=== PATIENT | male | born 1950 | race African-American/Black ===

== ENCOUNTER 2017-06-27 11:08 | Emergency (ER) | payer MEDICAID ==
[~2017-06-27] VITALS: Ht 180.3 cm; Wt 82.0 kg
[2017-06-27 11:11] VITALS: BP 128/65
[2017-06-27] MEDS ORDERED: BENA40TA3 PO (11:16)
[2017-06-27] MEDS ORDERED: INDOMETHACIN 50MG CAPSULE PO ONE (12:45)
== END 2017-06-27 14:26 | disposition home or self-care (01) ==
LOC: ER 12:10
DX: M25.572 Pain in left ankle and joints of left foot (principal); M25.521 Pain in right elbow; L08.9 Local infection of the skin and subcutaneous tissue, unspecified; J45.909 Unspecified asthma, uncomplicated; E11.9 Type 2 diabetes mellitus without complications; I10 Essential (primary) hypertension; M10.9 Gout, unspecified; F17.200 Nicotine dependence, unspecified, uncomplicated
CPT/HCPCS: 73080; 99284

== ENCOUNTER 2017-08-03 14:02 | Emergency (ER) | payer MEDICAID ==
[~2017-08-03] VITALS: Ht 175.3 cm; Wt 80.0 kg
[~2017-08-03 14:02] MED LIST: BENA40TA3 PO
[2017-08-03] MEDS ORDERED: SODIUM CHLORIDE 0.9% 1,000 ML IV ONE (14:45)
[2017-08-03 15:36] LABS: BASOPHILS % 0.5 % (0.0-2.0); EOSINOPHILS % 2.9 % (0.0-5.0); HEMATOCRIT. 38.6 % (42.0-52.0); HEMOGLOBIN. 12.9 g/dL (14.0-18.0); LYMPHOCYTES % 40.3 % (20.0-50.0); MEAN CORPUSCULAR HEMOGLOBIN 32.6 pg (28.0-32.0); MEAN CORPUSCULAR VOLUME 97.6 fL (80.0-94.0); MEAN PLATELET VOLUME 9.9 fl (7.4-10.4); MONOCYTES % 8.8 % (2.0-8.0); NEUTROPHILS % 47.5 % (40.0-76.0); PLATELET 81 x1000/uL (130-400); PROTHROMBIN TIME 10.6 sec (9.4-11.6); RED BLOOD CELL COUNT 3.96 mill/uL (4.7-6.1); RED CELL DISTRIBUTION WIDTH 16.1 % (11.6-14.6)
[2017-08-03 15:40] LABS: CHLORIDE 109 mEq/L (98-107)
[2017-08-03 15:43] LABS: AMMONIA 39 uMol/L (<32)
[2017-08-03 15:52] LABS: CREATINE KINASE 127 IU/L (39-308)
[2017-08-03 17:46] VITALS: BP 137/82
== END 2017-08-03 18:48 | disposition home or self-care (01) ==
LOC: ER 14:02
DX: F10.229 Alcohol dependence with intoxication, unspecified (principal); E86.0 Dehydration; R55 Syncope and collapse; E87.2 Acidosis; I10 Essential (primary) hypertension; J45.909 Unspecified asthma, uncomplicated; E11.9 Type 2 diabetes mellitus without complications; Y90.8 Blood alcohol level of 240 mg/100 ml or more; Z79.4 Long term (current) use of insulin
CPT/HCPCS: 36415; 70450; 71045; 80053; 82140; 82550; 83605; 84443; 84484; 85025; 85610; 96360; 96361; 99285; G0482; J7030

== ENCOUNTER 2017-11-24 14:22 | Emergency (ER) | payer MEDICAID ==
[~2017-11-24] VITALS: Ht 175.3 cm; Wt 91.0 kg
[2017-11-24] MEDS ORDERED: HYDROCODONE/ACETAMINOPHEN 10/325MG TABLET PO ONE (17:45)
[2017-11-24 18:29] VITALS: BP 123/63
== END 2017-11-24 18:30 | disposition home or self-care (01) ==
LOC: ER 14:40
DX: S42.294A Other nondisplaced fracture of upper end of right humerus, initial encounter for closed fracture (principal); I11.0 Hypertensive heart disease with heart failure; I50.9 Heart failure, unspecified; J45.909 Unspecified asthma, uncomplicated; W01.0XXA Fall on same level from slipping, tripping and stumbling without subsequent striking against object, initial encounter; Y93.89 Activity, other specified; Y92.015 Private garage of single-family (private) house as the place of occurrence of the external cause
CPT/HCPCS: 29105; 73030; 73060; 99284

== ENCOUNTER 2017-12-02 15:12 | Emergency (ER) | payer MEDICAID ==
[~2017-12-02] VITALS: Ht 180.3 cm; Wt 86.0 kg
[2017-12-02] MEDS ORDERED: ASPI-1159 PO (15:29)
[2017-12-02] MEDS ORDERED: IBUP-2030 PO (15:29)
[2017-12-02] MEDS ORDERED: HYDR-4009 PO (15:29)
[2017-12-02] MEDS ORDERED: GABA-531 PO (15:29)
[2017-12-02] MEDS ORDERED: HYDR-4001 PO (15:29)
[2017-12-02] MEDS ORDERED: ESOM40CA53 PO (15:29)
[2017-12-02] MEDS ORDERED: QUIN10TA28 PO (15:29)
[2017-12-02] MEDS ORDERED: COLC0.6C3 PO (15:29)
[2017-12-02] MEDS ORDERED: METO25TA6 PO (15:29)
[2017-12-02] MEDS ORDERED: IBUP-2321 PO (15:29)
[2017-12-02 18:59] VITALS: BP 122/70
== END 2017-12-02 19:00 | disposition home or self-care (01) ==
LOC: ER 15:12
DX: S42.201A Unspecified fracture of upper end of right humerus, initial encounter for closed fracture (principal); X58.XXXA Exposure to other specified factors, initial encounter; Y93.89 Activity, other specified; Y92.89 Other specified places as the place of occurrence of the external cause; Y99.8 Other external cause status
CPT/HCPCS: 29105; 73060; 99284

== ENCOUNTER 2018-09-01 23:04 | Inpatient (IN) | payer MEDICAID ==
[~2018-09-01] VITALS: Ht 173.5 cm; Wt 88.9 kg
[~2018-09-01 23:04] MED LIST changes: +ASPI-1159 PO; -BENA40TA3 PO; +BENA40TA9 PO; +COLC0.6C3 PO; +ESOM40CA53 PO; +GABA-531 PO; +HYDR-4001 PO; +HYDR-4009 PO; +IBUP-2030 PO; +IBUP-2321 PO; +METO25TA6 PO; +QUIN10TA28 PO
[2018-09-01] MEDS ORDERED: SODIUM CHLORIDE 0.9% 1,000 ML IV ONE (23:36)
[2018-09-01] MEDS ORDERED: NITROGLYCERIN OINT 1GM/INCH UDPKT TD ONE (23:45)
[2018-09-01] MEDS ORDERED: ASPIRIN 81MG TABLET PO ONE (23:45)
[2018-09-01 23:59] LABS: HEMATOCRIT. 35.1 % (42.0-52.0); HEMOGLOBIN. 11.7 g/dL (14.0-18.0); MEAN CORPUSCULAR HEMOGLOBIN 33.3 pg (28.0-32.0); MEAN CORPUSCULAR VOLUME 100.2 fL (80.0-94.0); MEAN PLATELET VOLUME 10.3 fl (7.4-10.4); PLATELET 74 x1000/uL (130-400); RED CELL DISTRIBUTION WIDTH 16.2 % (11.6-14.6)
[2018-09-02] VITALS (63 sets, daily range): BP systolic 99–190; BP diastolic 59–100
[2018-09-02 00:05] LABS: CHLORIDE 113 mEq/L (98-107)
[2018-09-02 00:27] LABS: PLATELET ESTIMATE DECREASED
[2018-09-02] MEDS ORDERED: EPINEPHRINE 0.1MG/ML (1:10,000) 10ML SYR ONE (01:24)
[2018-09-02] MEDS ORDERED: AMIODARONE HCL 50MG/ML 3ML VIAL IV ONE (01:24)
[2018-09-02] MEDS ORDERED: AMIODARONE HCL 900 MG in DEXT 5% WATER 500 ML IV PRN (01:30)
[2018-09-02] MEDS ORDERED: ONDANSETRON HCL 4MG/2ML INJ IV STA (01:44)
[2018-09-02] MEDS ORDERED: SODIUM CHLORIDE 0.9% 1,000 ML IV ONE (01:44)
[2018-09-02] MEDS ORDERED: AMIODARONE HCL 150 MG in DEXT 5% WATER 100 ML IV ONE (01:45)
[2018-09-02] MEDS ORDERED: AMIODARONE HCL 900 MG in DEXT 5% WATER 482 ML IV PRN (01:45)
[2018-09-02] MEDS ORDERED: MIDAZOLAM HCL 50 MG in DEXTROSE 5% WATER 40 ML IV ONE (02:00)
[2018-09-02] MEDS ORDERED: MIDAZOLAM HCL 2 MG/2 ML VIAL ONE (02:01)
[2018-09-02 02:13] LABS: BG BASE EXCESS -13.4 mmol/L (-2.0-2.0); BG CARBOXYHEMOGLOBIN 0.3 % (0.5-1.5); BG DEOXYHEMOGLOBIN 0.6 % (0.0-5.0); BG FRACTION INSPIRED OXYGEN 100; BG HCO3 ACT 12.1 mmol/L (22.0-26.0); BG METHEMOGLOBIN 0.8 % (0.0-1.5); BG OXYGEN SATURATION 99.4 % (92.0-98.5); BG OXYHEMOGLOBIN 98.3 % (94.0-97.0); BG PCO2 27.3 mmHg (35.0-45.0); BG PH 7.264 (7.350-7.450); BG PO2 525.5 mmHg (75.0-100.0); BG SAMPLE SITE LEFT RADIAL; BG TIDAL VOLUME(mL) 500 mL; BG TOTAL HEMOGLOBIN 11.5 g/dL (12.0-18.0); BG VENT MODE VENT - A/C; BG VENT RATE 14 set
[2018-09-02] MEDS ORDERED: ONDANSETRON HCL 4MG/2ML INJ IV PRN (02:15)
[2018-09-02] MEDS ORDERED: IPRATROPIUM/ALBUTEROL 0.5-3(2.5)MG/3ML NEB INH PRN (02:15)
[2018-09-02 02:42] LABS: D-DIMER 4.36 mg/L FEU (<0.50); PARTIAL THROMBOPLASTIN TIME 24.7 sec (23.4-31.0); PROTHROMBIN TIME 10.3 sec (9.6-11.0)
[2018-09-02] MEDS ORDERED: MIDAZOLAM HCL 2 MG/2 ML VIAL IV ONE (03:00)
[2018-09-02 03:21] LABS: HEPATITIS B SURFACE ANTIGEN NEGATIVE
[2018-09-02 03:50] LABS: HEPATITIS A AB IGM NEGATIVE (NEGATIVE)
[2018-09-02] MEDS ORDERED: MVI, ADULT NO.1 10 ML, FOLIC ACID 1 MG, THIAMINE HCL 100 MG in SODIUM CHLORIDE 0.9% 1,0... IV SCH ×4 (04:00)
[2018-09-02] MEDS ORDERED: PANTOPRAZOLE SODIUM 40 MG/VIAL IV NR (04:15)
[2018-09-02 04:55] LABS: CLARITY URINE CLOUDY (CLEAR); COLOR URINE YELLOW (YELLOW); KETONES URINE NEGATIVE (NEGATIVE); LEUKOCYTE ESTERASE URINE 1+ (NEGATIVE); NITRITE URINE NEGATIVE (NEGATIVE); OCCULT BLOOD URINE 2+ (NEGATIVE); PH URINE 5.5 (4.5-8.0); PROTEIN URINE 3+ (NEGATIVE); SPECIFIC GRAVITY URINE 1.011 (1.005-1.030)
[2018-09-02 06:26] LABS: *AMPHETAMINES SCREEN URINE NEGATIVE (NEGATIVE)
[2018-09-02 06:27] LABS: *BARBITURATES SCREEN URINE NEGATIVE (NEGATIVE); *BENZODIAZEPINES SCREEN URINE PRESUMTIVE POSITIVE (NEGATIVE); *COCAINE SCREEN URINE NEGATIVE (NEGATIVE); METHADONE URINE SCREEN NEGATIVE (NEGATIVE); OPIATES URINE SCREEN PRESUMTIVE POSITIVE (NEGATIVE); PHENCYCLIDINE URINE SCREEN NEGATIVE (NEGATIVE)
[2018-09-02 06:28] LABS: CANNABINOID URINE SCREEN NEGATIVE (NEGATIVE)
[2018-09-02] MEDS ORDERED: DEXTROSE 50% WATER 50ML SYRINGE IV PRN ×2 (08:00→12:00)
[2018-09-02] MEDS ORDERED: SODIUM BICARBONATE 8.4% 1 MEQ/ML 50ML SYR IV SCH (08:00)
[2018-09-02] MEDS ORDERED: IPRATROPIUM/ALBUTEROL 0.5-3(2.5)MG/3ML NEB HHN PRN (09:00)
[2018-09-02 09:52] LABS: HEMATOCRIT. 33.4 % (42.0-52.0); MEAN CORPUSCULAR HEMOGLOBIN 32.8 pg (28.0-32.0); MEAN PLATELET VOLUME 10.6 fl (7.4-10.4); PLATELET 63 x1000/uL (130-400); RED BLOOD CELL COUNT 3.34 mill/uL (4.7-6.1); RED CELL DISTRIBUTION WIDTH 15.6 % (11.6-14.6)
[2018-09-02] MEDS ORDERED: POTASSIUM CHLORIDE INJ 40 MEQ in DEXT 5% WATER 500 ML IV SCH (10:00)
[2018-09-02] MEDS ORDERED: MAGNESIUM 2 G PREMIX 50 ML IV NR (10:00)
[2018-09-02 10:15] LABS: PLATELET ESTIMATE DECREASED
[2018-09-02 10:35] LABS: BG BASE EXCESS 1.4 mmol/L (-2.0-2.0); BG CARBOXYHEMOGLOBIN 0.3 % (0.5-1.5); BG DEOXYHEMOGLOBIN 4.1 % (0.0-5.0); BG FRACTION INSPIRED OXYGEN 40; BG HCO3 ACT 23.2 mmol/L (22.0-26.0); BG METHEMOGLOBIN 0.1 % (0.0-1.5); BG OXYGEN SATURATION 95.9 % (92.0-98.5); BG OXYHEMOGLOBIN 95.5 % (94.0-97.0); BG PCO2 28.1 mmHg (35.0-45.0); BG PH 7.535 (7.350-7.450); BG PO2 74.1 mmHg (75.0-100.0); BG SAMPLE SITE LEFT RADIAL; BG TIDAL VOLUME(mL) 500 mL; BG TOTAL HEMOGLOBIN 11.2 g/dL (12.0-18.0); BG VENT MODE VENT - A/C; BG VENT RATE 20 set
[2018-09-02] MEDS: SODIUM CHLORIDE 0.9% 1,000 ML IV SCH (11:27)
[2018-09-02] MEDS: AMIODARONE HCL 900 MG in DEXT 5% WATER 482 ML IV PRN (11:28)
[2018-09-02] MEDS: PROPOFOL 10MG/ML 100ML 100 ML IV PRN ×2 (12:17→20:15)
[2018-09-02] MEDS: BLOOD SUGAR DIAGNOSTIC STRIP TEST SCH ×2 (12:27→17:28)
[2018-09-02] MEDS: IPRATROPIUM BROMIDE (0.02%) 0.5MG/2.5ML NEB HHN SCH ×3 (12:39→20:49)
[2018-09-02] MEDS: INSULIN LISPRO 100 UNITS/ML SUBCUT SCH ×3 (12:42→17:27)
[2018-09-02] MEDS: PIPERACILLIN/TAZ 3.375G PREMIX 50 ML IV SCH ×2 (15:57→21:38)
[2018-09-02] MEDS ORDERED: VANCOMYCIN 1250MG in DEXTROSE 5% WATER 250ML IV NR (16:45)
[2018-09-03] VITALS (89 sets, daily range): BP systolic 96–195; BP diastolic 58–115
[2018-09-03] MEDS: BLOOD SUGAR DIAGNOSTIC STRIP TEST SCH ×4 (00:27→23:31)
[2018-09-03] MEDS: IPRATROPIUM BROMIDE (0.02%) 0.5MG/2.5ML NEB HHN SCH ×6 (00:58→20:41)
[2018-09-03] MEDS: PROPOFOL 10MG/ML 100ML 100 ML IV PRN (03:40)
[2018-09-03] MEDS: SODIUM CHLORIDE 0.9% 1,000 ML IV SCH ×2 (03:40→17:07)
[2018-09-03] MEDS: PIPERACILLIN/TAZ 3.375G PREMIX 50 ML IV SCH ×4 (03:43→23:14)
[2018-09-03] MEDS: VANCOMYCIN 1 G PREMIX 200 ML IV SCH ×2 (04:41→23:14)
[2018-09-03 05:17] LABS: HIV SCREEN 4G Non Reactive (Non Reactive)
[2018-09-03 06:10] LABS: HEMATOCRIT. 33.1 % (42.0-52.0); MEAN CORPUSCULAR HEMOGLOBIN 33.6 pg (28.0-32.0); MEAN CORPUSCULAR VOLUME 101.1 fL (80.0-94.0); MEAN PLATELET VOLUME 10.5 fl (7.4-10.4); PLATELET 73 x1000/uL (130-400); RED BLOOD CELL COUNT 3.28 mill/uL (4.7-6.1); RED CELL DISTRIBUTION WIDTH 15.7 % (11.6-14.6)
[2018-09-03 06:13] LABS: CHLORIDE 114 mEq/L (98-107)
[2018-09-03 06:22] LABS: LDL CHOLESTEROL 26 mg/dL (5-100)
[2018-09-03 06:24] LABS: HDL CHOLESTEROL 18 mg/dL (40-59)
[2018-09-03 07:37] LABS: PLATELET ESTIMATE DECREASED
[2018-09-03] MEDS: INSULIN LISPRO 100 UNITS/ML SUBCUT SCH ×3 (08:20→23:30)
[2018-09-03 08:26] LABS: CREATINE KINASE 1080 IU/L (39-308)
[2018-09-03 08:32] LABS: BG BASE EXCESS -3.2 mmol/L (-2.0-2.0); BG CARBOXYHEMOGLOBIN 0.3 % (0.5-1.5); BG DEOXYHEMOGLOBIN 2.2 % (0.0-5.0); BG FRACTION INSPIRED OXYGEN 40; BG HCO3 ACT 20.3 mmol/L (22.0-26.0); BG METHEMOGLOBIN 0.5 % (0.0-1.5); BG OXYGEN SATURATION 97.8 % (92.0-98.5); BG PH 7.434 (7.350-7.450); BG SAMPLE SITE RIGHT BRACHIAL; BG TIDAL VOLUME(mL) 500 mL; BG TOTAL HEMOGLOBIN 10.6 g/dL (12.0-18.0); BG VENT MODE VENT - A/C; BG VENT RATE 16 set
[2018-09-03] MEDS: PANTOPRAZOLE SODIUM 40 MG/VIAL IV SCH (09:18)
[2018-09-03] MEDS: MULTIVITAMINS,THER W-MINERALS TABLET PO SCH (09:19)
[2018-09-03] MEDS: THIAMINE HCL 100MG TABLET PO SCH (09:19)
[2018-09-03] MEDS: FOLIC ACID 1MG TABLET PO SCH (09:19)
[2018-09-03] MEDS ORDERED: ASPIRIN 81MG TABLET PO SCH (14:00)
[2018-09-03] MEDS: MIDAZOLAM HCL 50 MG in DEXTROSE 5% WATER 40 ML IV PRN ×2 (15:16→23:18)
[2018-09-03] MEDS: FENTANYL CITRATE/PF 500 MCG in SODIUM CHLORIDE 0.9% 40 ML IV PRN (15:22)
[2018-09-03] MEDS: AMIODARONE HCL 900 MG in DEXT 5% WATER 482 ML IV PRN (15:52)
[2018-09-03] MEDS: METOPROLOL TARTRATE 25MG TABLET PO SCH (19:40)
[2018-09-03 20:34] LABS: BG BASE EXCESS -6.2 mmol/L (-2.0-2.0); BG CARBOXYHEMOGLOBIN 0.3 % (0.5-1.5); BG DEOXYHEMOGLOBIN 7.2 % (0.0-5.0); BG FRACTION INSPIRED OXYGEN 100; BG HCO3 ACT 17.2 mmol/L (22.0-26.0); BG METHEMOGLOBIN 0.5 % (0.0-1.5); BG OXYGEN SATURATION 92.7 % (92.0-98.5); BG PCO2 28.3 mmHg (35.0-45.0); BG PH 7.402 (7.350-7.450); BG PO2 65.3 mmHg (75.0-100.0); BG SAMPLE SITE RIGHT RADIAL; BG TIDAL VOLUME(mL) 500 mL; BG TOTAL HEMOGLOBIN 12.5 g/dL (12.0-18.0); BG VENT MODE VENT - A/C; BG VENT RATE 16 set
[2018-09-04] VITALS (98 sets, daily range): BP systolic 80–137; BP diastolic 44–111
[2018-09-04] MEDS: IPRATROPIUM BROMIDE (0.02%) 0.5MG/2.5ML NEB HHN SCH ×6 (00:30→20:06)
[2018-09-04] MEDS: PIPERACILLIN/TAZ 3.375G PREMIX 50 ML IV SCH ×4 (04:04→22:48)
[2018-09-04] MEDS: BLOOD SUGAR DIAGNOSTIC STRIP TEST SCH ×3 (05:25→18:05)
[2018-09-04] MEDS: INSULIN LISPRO 100 UNITS/ML SUBCUT SCH ×3 (05:25→18:52)
[2018-09-04 06:42] LABS: CHLORIDE 111 mEq/L (98-107)
[2018-09-04 06:45] LABS: HEMOGLOBIN. 10.2 g/dL (14.0-18.0); MEAN CORPUSCULAR HEMOGLOBIN 32.8 pg (28.0-32.0); MEAN CORPUSCULAR VOLUME 100.1 fL (80.0-94.0); MEAN PLATELET VOLUME 10.7 fl (7.4-10.4); PLATELET 68 x1000/uL (130-400); RED CELL DISTRIBUTION WIDTH 15.8 % (11.6-14.6)
[2018-09-04] MEDS ORDERED: POTASSIUM CHLORIDE 20MEQ/PACKET PO NR (07:30)
[2018-09-04 07:56] LABS: BG BASE EXCESS -3.9 mmol/L (-2.0-2.0); BG CARBOXYHEMOGLOBIN 0.3 % (0.5-1.5); BG DEOXYHEMOGLOBIN 0.8 % (0.0-5.0); BG FRACTION INSPIRED OXYGEN 100; BG METHEMOGLOBIN 0.5 % (0.0-1.5); BG OXYGEN SATURATION 99.2 % (92.0-98.5); BG OXYHEMOGLOBIN 98.4 % (94.0-97.0); BG PCO2 32.2 mmHg (35.0-45.0); BG PO2 276.6 mmHg (75.0-100.0); BG SAMPLE SITE RIGHT RADIAL; BG TIDAL VOLUME(mL) 500 mL; BG TOTAL HEMOGLOBIN 10.6 g/dL (12.0-18.0); BG VENT MODE VENT - A/C; BG VENT RATE 16 set
[2018-09-04 08:19] LABS: PLATELET ESTIMATE DECREASED
[2018-09-04] MEDS: METOPROLOL TARTRATE 25MG TABLET PO SCH ×2 (09:00→21:00)
[2018-09-04] MEDS: PANTOPRAZOLE SODIUM 40 MG/VIAL IV SCH (09:34)
[2018-09-04] MEDS: MULTIVITAMINS,THER W-MINERALS TABLET PO SCH (09:34)
[2018-09-04] MEDS: FOLIC ACID 1MG TABLET PO SCH (09:34)
[2018-09-04] MEDS: THIAMINE HCL 100MG TABLET PO SCH (09:34)
[2018-09-04] MEDS: FUROSEMIDE 40MG/4ML VIAL IVP SCH (09:37)
[2018-09-04 13:06] LABS: ANTI-NUCLEAR ANTIBODIES DIRECT Negative (Negative)
[2018-09-04] MEDS: VANCOMYCIN 1 G PREMIX 200 ML IV SCH (16:31)
[2018-09-04] MEDS: MIDAZOLAM HCL 50 MG in DEXTROSE 5% WATER 40 ML IV PRN (20:38)
[2018-09-05] VITALS (95 sets, daily range): BP systolic 101–149; BP diastolic 51–89
[2018-09-05] MEDS: IPRATROPIUM BROMIDE (0.02%) 0.5MG/2.5ML NEB HHN SCH ×7 (00:11→23:57)
[2018-09-05] MEDS: BLOOD SUGAR DIAGNOSTIC STRIP TEST SCH ×4 (00:50→18:56)
[2018-09-05] MEDS: INSULIN LISPRO 100 UNITS/ML SUBCUT SCH ×4 (00:50→18:58)
[2018-09-05] MEDS: PIPERACILLIN/TAZ 3.375G PREMIX 50 ML IV SCH ×3 (04:00→17:08)
[2018-09-05 06:11] LABS: CHLORIDE 113 mEq/L (98-107)
[2018-09-05 06:19] LABS: PHOSPHORUS 2.3 mg/dL (2.5-4.9)
[2018-09-05 06:23] LABS: BASOPHILS % 0.7 % (0.0-2.0); HEMOGLOBIN. 10.3 g/dL (14.0-18.0); MEAN CORPUSCULAR HEMOGLOBIN 33.5 pg (28.0-32.0); MEAN CORPUSCULAR VOLUME 100.4 fL (80.0-94.0); MEAN PLATELET VOLUME 10.6 fl (7.4-10.4); NEUTROPHILS % 77.3 % (40.0-76.0); PLATELET 77 x1000/uL (130-400); RED BLOOD CELL COUNT 3.08 mill/uL (4.7-6.1); RED CELL DISTRIBUTION WIDTH 15.9 % (11.6-14.6)
[2018-09-05] MEDS: FENTANYL CITRATE/PF 500 MCG in SODIUM CHLORIDE 0.9% 40 ML IV PRN (07:21)
[2018-09-05] MEDS ORDERED: POTASSIUM PHOS,M-BASIC-D-BASIC 15 MMOL in DEXT 5% WATER 245 ML IV ONE (08:00)
[2018-09-05 08:58] LABS: BG BASE EXCESS -1.4 mmol/L (-2.0-2.0); BG CARBOXYHEMOGLOBIN 0.3 % (0.5-1.5); BG DEOXYHEMOGLOBIN 1.3 % (0.0-5.0); BG FRACTION INSPIRED OXYGEN 55; BG HCO3 ACT 22.8 mmol/L (22.0-26.0); BG METHEMOGLOBIN 0.5 % (0.0-1.5); BG OXYGEN SATURATION 98.7 % (92.0-98.5); BG OXYHEMOGLOBIN 97.9 % (94.0-97.0); BG PCO2 36.5 mmHg (35.0-45.0); BG PH 7.414 (7.350-7.450); BG PO2 155.7 mmHg (75.0-100.0); BG SAMPLE SITE RIGHT RADIAL; BG TIDAL VOLUME(mL) 500 mL; BG TOTAL HEMOGLOBIN 10.6 g/dL (12.0-18.0); BG VENT MODE VENT - A/C; BG VENT RATE 16 set
[2018-09-05] MEDS ORDERED: POTASSIUM PHOS,M-BASIC-D-BASIC 15 MMOL in DEXT 5% WATER 245 ML IV NR (09:00)
[2018-09-05] MEDS: PANTOPRAZOLE SODIUM 40 MG/VIAL IV SCH (09:20)
[2018-09-05] MEDS: FUROSEMIDE 40MG/4ML VIAL IVP SCH (09:20)
[2018-09-05] MEDS: MULTIVITAMINS,THER W-MINERALS TABLET PO SCH (09:21)
[2018-09-05] MEDS: FOLIC ACID 1MG TABLET PO SCH (09:21)
[2018-09-05] MEDS: THIAMINE HCL 100MG TABLET PO SCH (09:21)
[2018-09-05] MEDS: METOPROLOL TARTRATE 25MG TABLET PO SCH ×2 (09:29→21:35)
[2018-09-05] MEDS ORDERED: POTASSIUM CHLORIDE 20MEQ/PACKET NG NR (11:30)
[2018-09-05] MEDS: VANCOMYCIN 1 G PREMIX 200 ML IV SCH (12:04)
[2018-09-05 13:06] LABS: COMPLEMENT C3 82 mg/dL (82-167)
[2018-09-05] MEDS: MIDAZOLAM HCL 50 MG in DEXTROSE 5% WATER 40 ML IV PRN (20:29)
[2018-09-05] MEDS: CEFAZOLIN 1000MG PREMIX 50 ML IV SCH (23:23)
[2018-09-06] VITALS (99 sets, daily range): BP systolic 110–170; BP diastolic 58–102
[2018-09-06] MEDS: BLOOD SUGAR DIAGNOSTIC STRIP TEST SCH ×4 (00:50→17:49)
[2018-09-06] MEDS: INSULIN LISPRO 100 UNITS/ML SUBCUT SCH ×4 (02:00→17:53)
[2018-09-06 06:27] LABS: CHLORIDE 112 mEq/L (98-107)
[2018-09-06 06:31] LABS: PHOSPHORUS 2.8 mg/dL (2.5-4.9)
[2018-09-06] MEDS: CEFAZOLIN 1000MG PREMIX 50 ML IV SCH ×3 (06:35→21:35)
[2018-09-06] MEDS: IPRATROPIUM BROMIDE (0.02%) 0.5MG/2.5ML NEB HHN SCH ×4 (07:53→21:01)
[2018-09-06 08:35] LABS: MEAN CORPUSCULAR HEMOGLOBIN 33.2 pg (28.0-32.0); MEAN CORPUSCULAR VOLUME 101.3 fL (80.0-94.0); MEAN PLATELET VOLUME 10.7 fl (7.4-10.4); PLATELET 74 x1000/uL (130-400); RED BLOOD CELL COUNT 3.95 mill/uL (4.7-6.1); RED CELL DISTRIBUTION WIDTH 16.3 % (11.6-14.6)
[2018-09-06 08:40] LABS: HEMOGLOBIN. 13.1 g/dL (14.0-18.0)
[2018-09-06] MEDS: FOLIC ACID 1MG TABLET PO SCH (09:15)
[2018-09-06] MEDS: THIAMINE HCL 100MG TABLET PO SCH (09:15)
[2018-09-06] MEDS: FUROSEMIDE 40MG/4ML VIAL IVP SCH (09:15)
[2018-09-06] MEDS: PANTOPRAZOLE SODIUM 40 MG/VIAL IV SCH (09:15)
[2018-09-06] MEDS: METOPROLOL TARTRATE 25MG TABLET PO SCH ×2 (09:16→21:36)
[2018-09-06] MEDS: MULTIVITAMINS,THER W-MINERALS TABLET PO SCH (09:16)
[2018-09-06 09:21] LABS: BG BASE EXCESS 1.8 mmol/L (-2.0-2.0); BG CARBOXYHEMOGLOBIN 0.2 % (0.5-1.5); BG DEOXYHEMOGLOBIN 1.1 % (0.0-5.0); BG FRACTION INSPIRED OXYGEN 40; BG METHEMOGLOBIN 0.3 % (0.0-1.5); BG OXYGEN SATURATION 98.9 % (92.0-98.5); BG OXYHEMOGLOBIN 98.4 % (94.0-97.0); BG PH 7.441 (7.350-7.450); BG PO2 152.2 mmHg (75.0-100.0); BG SAMPLE SITE RIGHT RADIAL; BG TIDAL VOLUME(mL) 500 mL; BG VENT MODE VENT - A/C; BG VENT RATE 16 set
[2018-09-06] MEDS ORDERED: POTASSIUM CHLORIDE 20MEQ/PACKET NG NR (10:15)
[2018-09-06] MEDS: MIDAZOLAM HCL 50 MG in DEXTROSE 5% WATER 40 ML IV PRN (10:22)
[2018-09-06 10:28] LABS: PLATELET ESTIMATE DECREASED
[2018-09-06] MEDS: LACTULOSE 20G/30ML UDC PO SCH (14:59)
[2018-09-07] VITALS (70 sets, daily range): BP systolic 133–195; BP diastolic 71–122
[2018-09-07] MEDS: BLOOD SUGAR DIAGNOSTIC STRIP TEST SCH ×4 (00:14→17:28)
[2018-09-07] MEDS: INSULIN LISPRO 100 UNITS/ML SUBCUT SCH ×4 (00:22→17:36)
[2018-09-07] MEDS: IPRATROPIUM BROMIDE (0.02%) 0.5MG/2.5ML NEB HHN SCH ×3 (00:35→07:30)
[2018-09-07 05:33] LABS: HEMATOCRIT. 34.8 % (42.0-52.0); HEMOGLOBIN. 11.7 g/dL (14.0-18.0); MEAN CORPUSCULAR HEMOGLOBIN 33.1 pg (28.0-32.0); MEAN CORPUSCULAR VOLUME 98.9 fL (80.0-94.0); MEAN PLATELET VOLUME 10.4 fl (7.4-10.4); PLATELET 124 x1000/uL (130-400); RED BLOOD CELL COUNT 3.51 mill/uL (4.7-6.1); RED CELL DISTRIBUTION WIDTH 15.2 % (11.6-14.6)
[2018-09-07 05:36] LABS: CHLORIDE 107 mEq/L (98-107)
[2018-09-07 05:55] LABS: PHOSPHORUS 3.4 mg/dL (2.5-4.9)
[2018-09-07] MEDS: CEFAZOLIN 1000MG PREMIX 50 ML IV SCH ×3 (06:36→21:49)
[2018-09-07] MEDS ORDERED: POTASSIUM CHLORIDE 20MEQ/PACKET PO SCH (07:30)
[2018-09-07 07:37] LABS: BG BASE EXCESS 0.8 mmol/L (-2.0-2.0); BG CARBOXYHEMOGLOBIN 0.3 % (0.5-1.5); BG DEOXYHEMOGLOBIN 3.1 % (0.0-5.0); BG HCO3 ACT 24.2 mmol/L (22.0-26.0); BG METHEMOGLOBIN 0.3 % (0.0-1.5); BG OXYGEN SATURATION 96.9 % (92.0-98.5); BG OXYHEMOGLOBIN 96.3 % (94.0-97.0); BG PCO2 34.6 mmHg (35.0-45.0); BG PH 7.463 (7.350-7.450); BG PO2 88.9 mmHg (75.0-100.0); BG SAMPLE SITE RIGHT BRACHIAL; BG TIDAL VOLUME(mL) 500 mL; BG TOTAL HEMOGLOBIN 11.6 g/dL (12.0-18.0); BG VENT MODE VENT - A/C; BG VENT RATE 16 set
[2018-09-07] MEDS: PANTOPRAZOLE SODIUM 40 MG/VIAL IV SCH (08:12)
[2018-09-07] MEDS: LACTULOSE 20G/30ML UDC PO SCH (08:12)
[2018-09-07] MEDS: METOPROLOL TARTRATE 25MG TABLET PO SCH ×2 (08:12→20:14)
[2018-09-07] MEDS: FUROSEMIDE 40MG/4ML VIAL IVP SCH (08:12)
[2018-09-07] MEDS: MULTIVITAMINS,THER W-MINERALS TABLET PO SCH (08:13)
[2018-09-07] MEDS: THIAMINE HCL 100MG TABLET PO SCH (08:13)
[2018-09-07] MEDS: AMLODIPINE 5MG TABLET PO SCH (08:13)
[2018-09-07] MEDS: FOLIC ACID 1MG TABLET PO SCH (08:13)
[2018-09-07 09:01] LABS: PLATELET ESTIMATE NORMAL
[2018-09-07] MEDS: IPRATROPIUM/ALBUTEROL 0.5-3(2.5)MG/3ML NEB HHN SCH ×3 (11:13→20:13)
[2018-09-07] MEDS: ACETYLCYSTEINE 100MG/ML 10% VIAL 4ML INH SCH (15:14)
[2018-09-08] VITALS (47 sets, daily range): BP systolic 91–165; BP diastolic 55–88
[2018-09-08] MEDS: BLOOD SUGAR DIAGNOSTIC STRIP TEST SCH ×5 (00:06→21:00)
[2018-09-08] MEDS: INSULIN LISPRO 100 UNITS/ML SUBCUT SCH ×5 (00:07→23:12)
[2018-09-08] MEDS: IPRATROPIUM/ALBUTEROL 0.5-3(2.5)MG/3ML NEB HHN SCH ×6 (00:31→20:12)
[2018-09-08] MEDS: ACETYLCYSTEINE 100MG/ML 10% VIAL 4ML INH SCH ×3 (00:31→15:41)
[2018-09-08] MEDS: CEFAZOLIN 1000MG PREMIX 50 ML IV SCH ×3 (05:40→22:40)
[2018-09-08 05:56] LABS: HEMATOCRIT. 37.6 % (42.0-52.0); HEMOGLOBIN. 12.6 g/dL (14.0-18.0); MEAN CORPUSCULAR HEMOGLOBIN 33.2 pg (28.0-32.0); MEAN CORPUSCULAR VOLUME 98.8 fL (80.0-94.0); MEAN PLATELET VOLUME 9.8 fl (7.4-10.4); PLATELET 168 x1000/uL (130-400); RED BLOOD CELL COUNT 3.81 mill/uL (4.7-6.1); RED CELL DISTRIBUTION WIDTH 15.8 % (11.6-14.6)
[2018-09-08 05:59] LABS: CHLORIDE 106 mEq/L (98-107)
[2018-09-08 06:15] LABS: PHOSPHORUS 3.5 mg/dL (2.5-4.9)
[2018-09-08 07:14] LABS: BG CARBOXYHEMOGLOBIN 0.7 % (0.5-1.5); BG DEOXYHEMOGLOBIN 1.7 % (0.0-5.0); BG HCO3 ACT 29.3 mmol/L (22.0-26.0); BG METHEMOGLOBIN 0.2 % (0.0-1.5); BG OXYGEN SATURATION 98.3 % (92.0-98.5); BG OXYHEMOGLOBIN 97.4 % (94.0-97.0); BG PCO2 42.1 mmHg (35.0-45.0); BG PH 7.461 (7.350-7.450); BG PO2 112.9 mmHg (75.0-100.0); BG SAMPLE SITE RIGHT RADIAL; BG TIDAL VOLUME(mL) 500 mL; BG TOTAL HEMOGLOBIN 13.3 g/dL (12.0-18.0); BG VENT MODE VENT - A/C; BG VENT RATE 14 set
[2018-09-08] MEDS: LACTULOSE 20G/30ML UDC PO SCH (09:21)
[2018-09-08] MEDS: THIAMINE HCL 100MG TABLET PO SCH (09:21)
[2018-09-08] MEDS: MULTIVITAMINS,THER W-MINERALS TABLET PO SCH (09:21)
[2018-09-08] MEDS: FOLIC ACID 1MG TABLET PO SCH (09:21)
[2018-09-08] MEDS: AMLODIPINE 5MG TABLET PO SCH ×2 (09:22→18:17)
[2018-09-08] MEDS: FUROSEMIDE 40MG/4ML VIAL IVP SCH (09:22)
[2018-09-08] MEDS: PANTOPRAZOLE SODIUM 40 MG/VIAL IV SCH (09:22)
[2018-09-08] MEDS: METOPROLOL TARTRATE 25MG TABLET PO SCH (09:23)
[2018-09-08] MEDS ORDERED: CLONIDINE 0.1MG TABLET PO PRN (10:30)
[2018-09-08] MEDS ORDERED: ACETAMINOPHEN 650MG SUPP PR PRN (10:45)
[2018-09-08] MEDS: LOSARTAN POTASSIUM 25 MG TABLET PO SCH (11:00)
[2018-09-08] MEDS: ASPIRIN 81MG EC TABLET PO SCH (12:16)
[2018-09-08 12:25] LABS: PLATELET ESTIMATE NORMAL
[2018-09-08] MEDS ORDERED: INSULIN LISPRO 100 UNITS/ML SUBCUT SCH (18:15)
[2018-09-08] MEDS ORDERED: INSULIN GLARGINE UD 100 UNITS/ML SYR SUBCUT SCH (22:00)
[2018-09-08] MEDS: ATORVASTATIN CALCIUM 20MG TABLET PO SCH (22:30)
[2018-09-08] MEDS: METOPROLOL TARTRATE 50MG TABLET PO SCH (22:30)
[2018-09-09] VITALS (60 sets, daily range): BP systolic 82–126; BP diastolic 40–72
[2018-09-09] MEDS: ACETYLCYSTEINE 100MG/ML 10% VIAL 4ML INH SCH ×3 (00:16→16:00)
[2018-09-09] MEDS: IPRATROPIUM/ALBUTEROL 0.5-3(2.5)MG/3ML NEB HHN SCH ×6 (00:16→20:24)
[2018-09-09] MEDS: CEFAZOLIN 1000MG PREMIX 50 ML IV SCH ×3 (05:39→21:20)
[2018-09-09 05:53] LABS: BASOPHILS % 0.4 % (0.0-2.0); EOSINOPHILS % 0.4 % (0.0-5.0); HEMATOCRIT. 35.6 % (42.0-52.0); HEMOGLOBIN. 11.7 g/dL (14.0-18.0); LYMPHOCYTES % 11.2 % (20.0-50.0); MEAN CORPUSCULAR HEMOGLOBIN 32.7 pg (28.0-32.0); MEAN CORPUSCULAR VOLUME 99.3 fL (80.0-94.0); MEAN PLATELET VOLUME 10.1 fl (7.4-10.4); MONOCYTES % 13.3 % (2.0-8.0); NEUTROPHILS % 74.7 % (40.0-76.0); PLATELET 229 x1000/uL (130-400); RED BLOOD CELL COUNT 3.59 mill/uL (4.7-6.1); RED CELL DISTRIBUTION WIDTH 15.2 % (11.6-14.6)
[2018-09-09] MEDS: BLOOD SUGAR DIAGNOSTIC STRIP TEST SCH ×10 (08:20→23:12)
[2018-09-09] MEDS ORDERED: INSULIN LISPRO 100 UNITS/ML SUBCUT NR (08:51)
[2018-09-09] MEDS: AMLODIPINE 5MG TABLET PO SCH ×2 (09:00→17:00)
[2018-09-09] MEDS: THIAMINE HCL 100MG TABLET PO SCH (09:01)
[2018-09-09] MEDS: MULTIVITAMINS,THER W-MINERALS TABLET PO SCH (09:01)
[2018-09-09] MEDS: METOPROLOL TARTRATE 50MG TABLET PO SCH ×2 (09:01→21:00)
[2018-09-09] MEDS: ASPIRIN 81MG EC TABLET PO SCH (09:01)
[2018-09-09] MEDS: LOSARTAN POTASSIUM 25 MG TABLET PO SCH (09:01)
[2018-09-09] MEDS: FOLIC ACID 1MG TABLET PO SCH (09:01)
[2018-09-09] MEDS: LACTULOSE 20G/30ML UDC PO SCH (09:02)
[2018-09-09] MEDS: PANTOPRAZOLE SODIUM 40 MG/VIAL IV SCH (09:02)
[2018-09-09] MEDS: INSULIN LISPRO 100 UNITS/ML SUBCUT SCH (09:04)
[2018-09-09] MEDS ORDERED: INSULIN GLARGINE UD 100 UNITS/ML SYR SUBCUT SCH ×2 (10:00)
[2018-09-09] MEDS ORDERED: DEXTROSE 50% WATER 50ML SYRINGE IV PRN ×4 (11:15→12:30)
[2018-09-09] MEDS ORDERED: INSULIN REGULAR (DRIP) 100 UNITS in SODIUM CHLORIDE 0.9% 99 ML IV PRN (12:00)
[2018-09-09] MEDS ORDERED: BLOOD SUGAR DIAGNOSTIC STRIP TEST SCH (12:00)
[2018-09-09] MEDS ORDERED: INSULIN REGULAR (DRIP) 100 UNITS in SODIUM CHLORIDE 0.9% 99 ML IV SCH (13:15)
[2018-09-09 17:08] LABS: CREATINE KINASE 208 IU/L (39-308)
[2018-09-09] MEDS: POLYVINYL ALCOHOL OPHTH DROPS 15ML BOTHEYE SCH (17:41)
[2018-09-09] MEDS: SODIUM CHLORIDE 0.45% 1,000 ML IV SCH (17:42)
[2018-09-09] MEDS: ATORVASTATIN CALCIUM 20MG TABLET PO SCH (21:19)
[2018-09-10] VITALS (89 sets, daily range): BP systolic 89–132; BP diastolic 49–72
[2018-09-10] MEDS: POLYVINYL ALCOHOL OPHTH DROPS 15ML BOTHEYE SCH ×4 (00:05→17:21)
[2018-09-10] MEDS: ACETYLCYSTEINE 100MG/ML 10% VIAL 4ML INH SCH ×2 (00:12→07:23)
[2018-09-10] MEDS: IPRATROPIUM/ALBUTEROL 0.5-3(2.5)MG/3ML NEB HHN SCH ×6 (00:12→20:17)
[2018-09-10] MEDS: BLOOD SUGAR DIAGNOSTIC STRIP TEST SCH ×15 (00:30→20:30)
[2018-09-10 05:24] LABS: BASOPHILS % 0.4 % (0.0-2.0); HEMOGLOBIN. 11.2 g/dL (14.0-18.0); LYMPHOCYTES % 16.9 % (20.0-50.0); MEAN CORPUSCULAR HEMOGLOBIN 32.7 pg (28.0-32.0); MEAN CORPUSCULAR VOLUME 99.2 fL (80.0-94.0); MEAN PLATELET VOLUME 10.1 fl (7.4-10.4); MONOCYTES % 8.2 % (2.0-8.0); NEUTROPHILS % 72.5 % (40.0-76.0); PLATELET 278 x1000/uL (130-400); RED BLOOD CELL COUNT 3.42 mill/uL (4.7-6.1); RED CELL DISTRIBUTION WIDTH 15.4 % (11.6-14.6)
[2018-09-10] MEDS: CEFAZOLIN 1000MG PREMIX 50 ML IV SCH ×2 (06:01→14:37)
[2018-09-10 07:52] LABS: BG BASE EXCESS 4.3 mmol/L (-2.0-2.0); BG CARBOXYHEMOGLOBIN 0.3 % (0.5-1.5); BG DEOXYHEMOGLOBIN 2.7 % (0.0-5.0); BG HCO3 ACT 28.6 mmol/L (22.0-26.0); BG METHEMOGLOBIN 0.3 % (0.0-1.5); BG OXYGEN SATURATION 97.3 % (92.0-98.5); BG OXYHEMOGLOBIN 96.7 % (94.0-97.0); BG PCO2 41.7 mmHg (35.0-45.0); BG PH 7.454 (7.350-7.450); BG PO2 94.8 mmHg (75.0-100.0); BG SAMPLE SITE RIGHT BRACHIAL; BG TIDAL VOLUME(mL) 500 mL; BG TOTAL HEMOGLOBIN 11.2 g/dL (12.0-18.0); BG VENT MODE VENT - A/C; BG VENT RATE 14 set
[2018-09-10] MEDS: PANTOPRAZOLE SODIUM 40 MG/VIAL IV SCH (10:30)
[2018-09-10] MEDS: METOPROLOL TARTRATE 50MG TABLET PO SCH ×2 (10:31→20:49)
[2018-09-10] MEDS: MULTIVITAMINS,THER W-MINERALS TABLET PO SCH (10:32)
[2018-09-10] MEDS: SODIUM CHLORIDE 0.45% 1,000 ML IV SCH (10:32)
[2018-09-10] MEDS: FOLIC ACID 1MG TABLET PO SCH (10:32)
[2018-09-10] MEDS: AMLODIPINE 5MG TABLET PO SCH ×2 (10:32→17:21)
[2018-09-10] MEDS: THIAMINE HCL 100MG TABLET PO SCH (10:32)
[2018-09-10] MEDS: LACTULOSE 20G/30ML UDC PO SCH (10:33)
[2018-09-10] MEDS ORDERED: DEXTROSE 50% WATER 50ML SYRINGE IV PRN (12:15)
[2018-09-10] MEDS ORDERED: FUROSEMIDE 40MG/4ML VIAL IVP NR (13:00)
[2018-09-10] MEDS: INSULIN LISPRO 100 UNITS/ML SUBCUT SCH ×3 (14:38→20:46)
[2018-09-10] MEDS ORDERED: LIDOCAINE HCL/PF 1% 2ML VIAL ONE (16:42)
[2018-09-10] MEDS: ATORVASTATIN CALCIUM 20MG TABLET PO SCH (20:50)
[2018-09-10] MEDS: CEFAZOLIN 500MG in DEXTROSE 5% WATER 50ML IV SCH (21:36)
[2018-09-10] MEDS ORDERED: INSULIN GLARGINE UD 100 UNITS/ML SYR SUBCUT SCH (22:00)
[2018-09-10] MEDS: INSULIN GLARGINE UD 100 UNITS/ML SYR SUBCUT SCH (22:18)
[2018-09-11] VITALS (76 sets, daily range): BP systolic 101–132; BP diastolic 54–76
[2018-09-11] MEDS: ACETYLCYSTEINE 100MG/ML 10% VIAL 4ML INH SCH ×2 (00:17→16:00)
[2018-09-11] MEDS: IPRATROPIUM/ALBUTEROL 0.5-3(2.5)MG/3ML NEB HHN SCH ×6 (00:17→20:18)
[2018-09-11] MEDS: SODIUM CHLORIDE 0.45% 1,000 ML IV SCH ×2 (00:17→15:47)
[2018-09-11] MEDS: INSULIN LISPRO 100 UNITS/ML SUBCUT SCH ×6 (00:24→17:14)
[2018-09-11] MEDS: BLOOD SUGAR DIAGNOSTIC STRIP TEST SCH ×6 (00:25→20:00)
[2018-09-11] MEDS: POLYVINYL ALCOHOL OPHTH DROPS 15ML BOTHEYE SCH ×4 (00:26→17:13)
[2018-09-11 05:44] LABS: BASOPHILS % 0.7 % (0.0-2.0); EOSINOPHILS % 3.2 % (0.0-5.0); HEMATOCRIT. 34.7 % (42.0-52.0); HEMOGLOBIN. 11.2 g/dL (14.0-18.0); LYMPHOCYTES % 16.3 % (20.0-50.0); MEAN CORPUSCULAR HEMOGLOBIN 32.1 pg (28.0-32.0); MEAN CORPUSCULAR VOLUME 99.7 fL (80.0-94.0); MONOCYTES % 7.3 % (2.0-8.0); NEUTROPHILS % 72.5 % (40.0-76.0); RED BLOOD CELL COUNT 3.48 mill/uL (4.7-6.1); RED CELL DISTRIBUTION WIDTH 15.3 % (11.6-14.6)
[2018-09-11 08:03] LABS: PLATELET 304 x1000/uL (130-400)
[2018-09-11] MEDS: PANTOPRAZOLE SODIUM 40 MG/VIAL IV SCH (09:32)
[2018-09-11] MEDS: MULTIVITAMINS,THER W-MINERALS TABLET PO SCH (09:33)
[2018-09-11] MEDS: FOLIC ACID 1MG TABLET PO SCH (09:33)
[2018-09-11] MEDS: CEFAZOLIN 500MG in DEXTROSE 5% WATER 50ML IV SCH (09:33)
[2018-09-11] MEDS: LACTULOSE 20G/30ML UDC PO SCH (09:33)
[2018-09-11] MEDS: THIAMINE HCL 100MG TABLET PO SCH (09:33)
[2018-09-11] MEDS: METOPROLOL TARTRATE 50MG TABLET PO SCH ×2 (09:37→21:55)
[2018-09-11] MEDS: AMLODIPINE 5MG TABLET PO SCH ×2 (09:37→17:12)
[2018-09-11] MEDS: INSULIN GLARGINE UD 100 UNITS/ML SYR SUBCUT SCH (11:22)
[2018-09-11] MEDS: METRONIDAZOLE 500 MG PREMIX 100 ML IV SCH ×2 (15:47→21:44)
[2018-09-11] MEDS: CEFAZOLIN 1000MG PREMIX 50 ML IV SCH (17:12)
[2018-09-11] MEDS: ATORVASTATIN CALCIUM 20MG TABLET PO SCH (21:53)
[2018-09-11] MEDS ORDERED: INSULIN GLARGINE UD 100 UNITS/ML SYR SUBCUT SCH (22:00)
[2018-09-12] VITALS (18 sets, daily range): BP systolic 98–152; BP diastolic 53–79
[2018-09-12] MEDS: IPRATROPIUM/ALBUTEROL 0.5-3(2.5)MG/3ML NEB HHN SCH ×5 (00:01→20:24)
[2018-09-12] MEDS: ACETYLCYSTEINE 100MG/ML 10% VIAL 4ML INH SCH ×2 (00:01→08:19)
[2018-09-12] MEDS: BLOOD SUGAR DIAGNOSTIC STRIP TEST SCH ×6 (00:49→20:00)
[2018-09-12] MEDS: INSULIN LISPRO 100 UNITS/ML SUBCUT SCH ×6 (00:57→20:59)
[2018-09-12] MEDS: POLYVINYL ALCOHOL OPHTH DROPS 15ML BOTHEYE SCH ×4 (00:59→18:43)
[2018-09-12] MEDS: CEFAZOLIN 1000MG PREMIX 50 ML IV SCH ×2 (02:00→09:25)
[2018-09-12] MEDS: METRONIDAZOLE 500 MG PREMIX 100 ML IV SCH (05:07)
[2018-09-12] MEDS: SODIUM CHLORIDE 0.45% 1,000 ML IV SCH (06:46)
[2018-09-12 08:22] LABS: BG BASE EXCESS 5.7 mmol/L (-2.0-2.0); BG CARBOXYHEMOGLOBIN 0.1 % (0.5-1.5); BG DEOXYHEMOGLOBIN 3.4 % (0.0-5.0); BG HCO3 ACT 29.3 mmol/L (22.0-26.0); BG METHEMOGLOBIN 0.3 % (0.0-1.5); BG OXYGEN SATURATION 96.6 % (92.0-98.5); BG OXYHEMOGLOBIN 96.2 % (94.0-97.0); BG PCO2 39.1 mmHg (35.0-45.0); BG PH 7.493 (7.350-7.450); BG PO2 83.3 mmHg (75.0-100.0); BG SAMPLE SITE RIGHT RADIAL; BG TIDAL VOLUME(mL) 500 mL; BG TOTAL HEMOGLOBIN 11.2 g/dL (12.0-18.0); BG VENT MODE VENT - A/C; BG VENT RATE 14 set
[2018-09-12] MEDS: LACTULOSE 20G/30ML UDC PO SCH (09:17)
[2018-09-12] MEDS: PANTOPRAZOLE SODIUM 40 MG/VIAL IV SCH (09:17)
[2018-09-12] MEDS: FOLIC ACID 1MG TABLET PO SCH (09:18)
[2018-09-12] MEDS: AMLODIPINE 5MG TABLET PO SCH ×2 (09:19→18:43)
[2018-09-12] MEDS: THIAMINE HCL 100MG TABLET PO SCH (09:19)
[2018-09-12] MEDS: MULTIVITAMINS,THER W-MINERALS TABLET PO SCH (09:19)
[2018-09-12] MEDS: METOPROLOL TARTRATE 50MG TABLET PO SCH ×2 (09:19→20:49)
[2018-09-12 11:07] LABS: BASOPHILS % 0.8 % (0.0-2.0); EOSINOPHILS % 2.8 % (0.0-5.0); HEMATOCRIT. 31.9 % (42.0-52.0); HEMOGLOBIN. 10.4 g/dL (14.0-18.0); LYMPHOCYTES % 17.8 % (20.0-50.0); MEAN CORPUSCULAR HEMOGLOBIN 32.2 pg (28.0-32.0); MEAN CORPUSCULAR VOLUME 98.7 fL (80.0-94.0); NEUTROPHILS % 69.6 % (40.0-76.0); RED BLOOD CELL COUNT 3.23 mill/uL (4.7-6.1); RED CELL DISTRIBUTION WIDTH 15.6 % (11.6-14.6)
[2018-09-12 11:22] LABS: CHLORIDE 112 mEq/L (98-107)
[2018-09-12] MEDS: ATORVASTATIN CALCIUM 20MG TABLET PO SCH (20:49)
[2018-09-12] MEDS: INSULIN GLARGINE UD 100 UNITS/ML SYR SUBCUT SCH (22:29)
[2018-09-13] VITALS (13 sets, daily range): BP systolic 96–150; BP diastolic 50–73
[2018-09-13] MEDS: ACETYLCYSTEINE 100MG/ML 10% VIAL 4ML INH SCH
[2018-09-13] MEDS: IPRATROPIUM/ALBUTEROL 0.5-3(2.5)MG/3ML NEB HHN SCH ×6 (00:05→20:32)
[2018-09-13] MEDS: POLYVINYL ALCOHOL OPHTH DROPS 15ML BOTHEYE SCH ×5 (00:38→23:06)
[2018-09-13] MEDS: INSULIN LISPRO 100 UNITS/ML SUBCUT SCH ×7 (00:40→23:08)
[2018-09-13] MEDS: BLOOD SUGAR DIAGNOSTIC STRIP TEST SCH ×7 (04:00→23:06)
[2018-09-13 06:49] LABS: CHLORIDE 113 mEq/L (98-107)
[2018-09-13 06:50] LABS: BASOPHILS % 0.7 % (0.0-2.0); EOSINOPHILS % 2.9 % (0.0-5.0); HEMATOCRIT. 33.9 % (42.0-52.0); HEMOGLOBIN. 11.1 g/dL (14.0-18.0); LYMPHOCYTES % 15.4 % (20.0-50.0); MEAN CORPUSCULAR HEMOGLOBIN 32.7 pg (28.0-32.0); MEAN CORPUSCULAR VOLUME 99.5 fL (80.0-94.0); MEAN PLATELET VOLUME 10.4 fl (7.4-10.4); MONOCYTES % 8.1 % (2.0-8.0); NEUTROPHILS % 72.9 % (40.0-76.0); PLATELET 278 x1000/uL (130-400); RED BLOOD CELL COUNT 3.41 mill/uL (4.7-6.1); RED CELL DISTRIBUTION WIDTH 15.1 % (11.6-14.6)
[2018-09-13 08:19] LABS: BG BASE EXCESS 6.1 mmol/L (-2.0-2.0); BG CARBOXYHEMOGLOBIN 0.2 % (0.5-1.5); BG DEOXYHEMOGLOBIN 1.4 % (0.0-5.0); BG HCO3 ACT 30.7 mmol/L (22.0-26.0); BG METHEMOGLOBIN 0.3 % (0.0-1.5); BG OXYGEN SATURATION 98.6 % (92.0-98.5); BG OXYHEMOGLOBIN 98.1 % (94.0-97.0); BG PCO2 44.5 mmHg (35.0-45.0); BG PH 7.457 (7.350-7.450); BG PO2 130.8 mmHg (75.0-100.0); BG SAMPLE SITE RIGHT RADIAL; BG TIDAL VOLUME(mL) 500 mL; BG TOTAL HEMOGLOBIN 11.1 g/dL (12.0-18.0); BG VENT MODE VENT - A/C; BG VENT RATE 14 set
[2018-09-13] MEDS: MULTIVITAMINS,THER W-MINERALS TABLET PO SCH (08:54)
[2018-09-13] MEDS: PANTOPRAZOLE SODIUM 40 MG/VIAL IV SCH (08:54)
[2018-09-13] MEDS: FOLIC ACID 1MG TABLET PO SCH (08:54)
[2018-09-13] MEDS: METOPROLOL TARTRATE 50MG TABLET PO SCH ×2 (08:55→20:19)
[2018-09-13] MEDS: THIAMINE HCL 100MG TABLET PO SCH (08:55)
[2018-09-13] MEDS: AMLODIPINE 5MG TABLET PO SCH ×2 (08:55→17:07)
[2018-09-13] MEDS: LACTULOSE 20G/30ML UDC PO SCH (09:09)
[2018-09-13] MEDS: INSULIN GLARGINE UD 100 UNITS/ML SYR SUBCUT SCH ×2 (10:14→22:24)
[2018-09-13] MEDS: ACETAMINOPHEN 650MG/20.3ML UDC PO PRN (12:45)
[2018-09-13] MEDS: ATORVASTATIN CALCIUM 20MG TABLET PO SCH (20:19)
[2018-09-14] VITALS (19 sets, daily range): BP systolic 106–162; BP diastolic 58–86
[2018-09-14] MEDS: IPRATROPIUM/ALBUTEROL 0.5-3(2.5)MG/3ML NEB HHN SCH ×6 (00:20→21:35)
[2018-09-14] MEDS: INSULIN LISPRO 100 UNITS/ML SUBCUT SCH ×6 (04:00→21:07)
[2018-09-14] MEDS: BLOOD SUGAR DIAGNOSTIC STRIP TEST SCH ×6 (04:00→23:44)
[2018-09-14] MEDS: POLYVINYL ALCOHOL OPHTH DROPS 15ML BOTHEYE SCH ×4 (04:52→23:44)
[2018-09-14 06:43] LABS: BASOPHILS % 0.7 % (0.0-2.0); EOSINOPHILS % 3.6 % (0.0-5.0); HEMATOCRIT. 32.5 % (42.0-52.0); HEMOGLOBIN. 10.7 g/dL (14.0-18.0); MEAN CORPUSCULAR HEMOGLOBIN 32.7 pg (28.0-32.0); MEAN CORPUSCULAR VOLUME 99.2 fL (80.0-94.0); MONOCYTES % 9.2 % (2.0-8.0); NEUTROPHILS % 63.5 % (40.0-76.0); PLATELET 336 x1000/uL (130-400); RED BLOOD CELL COUNT 3.28 mill/uL (4.7-6.1); RED CELL DISTRIBUTION WIDTH 15.2 % (11.6-14.6)
[2018-09-14 07:07] LABS: CHLORIDE 114 mEq/L (98-107)
[2018-09-14] MEDS: THIAMINE HCL 100MG TABLET PO SCH (09:00)
[2018-09-14] MEDS: METOPROLOL TARTRATE 50MG TABLET PO SCH ×2 (09:00→20:19)
[2018-09-14] MEDS: MULTIVITAMINS,THER W-MINERALS TABLET PO SCH (09:00)
[2018-09-14] MEDS: LACTULOSE 20G/30ML UDC PO SCH (09:00)
[2018-09-14] MEDS: AMLODIPINE 5MG TABLET PO SCH ×2 (09:00→17:00)
[2018-09-14] MEDS: FOLIC ACID 1MG TABLET PO SCH (09:00)
[2018-09-14] MEDS: PANTOPRAZOLE SODIUM 40 MG/VIAL IV SCH (09:16)
[2018-09-14] MEDS: INSULIN GLARGINE UD 100 UNITS/ML SYR SUBCUT SCH ×2 (10:00→21:14)
[2018-09-14 10:37] LABS: INR 1.1; PROTHROMBIN TIME 11.3 sec (9.6-11.0)
[2018-09-14 11:04] LABS: BG BASE EXCESS 5.1 mmol/L (-2.0-2.0); BG CARBOXYHEMOGLOBIN 0.1 % (0.5-1.5); BG DEOXYHEMOGLOBIN 1.5 % (0.0-5.0); BG FRACTION INSPIRED OXYGEN 40; BG HCO3 ACT 29.4 mmol/L (22.0-26.0); BG METHEMOGLOBIN 0.2 % (0.0-1.5); BG OXYGEN SATURATION 98.5 % (92.0-98.5); BG OXYHEMOGLOBIN 98.2 % (94.0-97.0); BG PCO2 42.2 mmHg (35.0-45.0); BG PH 7.461 (7.350-7.450); BG PO2 134.3 mmHg (75.0-100.0); BG SAMPLE SITE RIGHT RADIAL; BG TIDAL VOLUME(mL) 500 mL; BG TOTAL HEMOGLOBIN 11.1 g/dL (12.0-18.0); BG VENT MODE VENT - A/C; BG VENT RATE 14 set
[2018-09-14] MEDS: DEXT 5%/0.45% NACL 1000ML 1,000 ML IV SCH (12:08)
[2018-09-14] MEDS: METRONIDAZOLE 500 MG PREMIX 100 ML IV SCH ×3 (12:17→20:51)
[2018-09-14] MEDS: CEFTRIAXONE 1 G PREMIX 50 ML IV SCH (13:18)
[2018-09-14] MEDS ORDERED: FENTANYL CITRATE/PF 50MCG/ML 2ML VIAL ONE (13:58)
[2018-09-14] MEDS ORDERED: MIDAZOLAM HCL 5 MG/5 ML VIAL ONE ×2 (13:58→18:40)
[2018-09-14] MEDS ORDERED: MIDAZOLAM HCL 5 MG/5 ML VIAL IV PRN (15:16)
[2018-09-14] MEDS ORDERED: BACTERIOSTATIC SODIUM CHLORIDE 0.9% 30ML VIAL IJ ONE (15:59)
[2018-09-14] MEDS ORDERED: DEXTROSE 5% WATER 1,000 ML IV SCH (17:00)
[2018-09-14] MEDS ORDERED: ROCURONIUM BROMIDE 10MG/ML VIAL 5ML IV ONE (18:40)
[2018-09-14] MEDS: ATORVASTATIN CALCIUM 20MG TABLET PO SCH (20:51)
[2018-09-14] MEDS: METOCLOPRAMIDE HCL 10MG/2ML VIAL IV SCH (23:43)
[2018-09-14] MEDS: ACETAMINOPHEN 650MG/20.3ML UDC PO PRN (23:44)
[2018-09-15] VITALS (18 sets, daily range): BP systolic 101–128; BP diastolic 50–68
[2018-09-15] MEDS: INSULIN LISPRO 100 UNITS/ML SUBCUT SCH ×6 (00:30→21:55)
[2018-09-15] MEDS: IPRATROPIUM/ALBUTEROL 0.5-3(2.5)MG/3ML NEB HHN SCH ×6 (00:31→20:15)
[2018-09-15] MEDS: BLOOD SUGAR DIAGNOSTIC STRIP TEST SCH ×5 (04:00→20:00)
[2018-09-15] MEDS: DEXT 5%/0.45% NACL 1000ML 1,000 ML IV SCH ×2 (04:43→21:53)
[2018-09-15] MEDS: METRONIDAZOLE 500 MG PREMIX 100 ML IV SCH ×3 (04:55→21:28)
[2018-09-15] MEDS: METOCLOPRAMIDE HCL 10MG/2ML VIAL IV SCH ×3 (06:03→17:31)
[2018-09-15] MEDS: POLYVINYL ALCOHOL OPHTH DROPS 15ML BOTHEYE SCH ×3 (06:04→17:30)
[2018-09-15 06:31] LABS: CHLORIDE 113 mEq/L (98-107); EOSINOPHILS % 2.6 % (0.0-5.0); HEMATOCRIT. 34.2 % (42.0-52.0); LYMPHOCYTES % 14.3 % (20.0-50.0); MEAN CORPUSCULAR HEMOGLOBIN 32.1 pg (28.0-32.0); MEAN CORPUSCULAR VOLUME 99.7 fL (80.0-94.0); MEAN PLATELET VOLUME 10.2 fl (7.4-10.4); MONOCYTES % 9.9 % (2.0-8.0); NEUTROPHILS % 72.2 % (40.0-76.0); PLATELET 341 x1000/uL (130-400); RED BLOOD CELL COUNT 3.43 mill/uL (4.7-6.1); RED CELL DISTRIBUTION WIDTH 15.2 % (11.6-14.6)
[2018-09-15] MEDS: MULTIVITAMINS,THER W-MINERALS TABLET PO SCH (09:54)
[2018-09-15] MEDS: FOLIC ACID 1MG TABLET PO SCH (09:55)
[2018-09-15] MEDS: THIAMINE HCL 100MG TABLET PO SCH (09:55)
[2018-09-15] MEDS: AMLODIPINE 5MG TABLET PO SCH ×2 (09:55→17:30)
[2018-09-15] MEDS: METOPROLOL TARTRATE 50MG TABLET PO SCH ×2 (09:56→21:28)
[2018-09-15] MEDS: PANTOPRAZOLE SODIUM 40 MG/VIAL IV SCH (09:56)
[2018-09-15] MEDS: LACTULOSE 20G/30ML UDC PO SCH (10:23)
[2018-09-15] MEDS: CEFTRIAXONE 1 G PREMIX 50 ML IV SCH (13:06)
[2018-09-15] MEDS: INSULIN GLARGINE UD 100 UNITS/ML SYR SUBCUT SCH ×2 (13:56→21:47)
[2018-09-15] MEDS: ACETAMINOPHEN 650MG/20.3ML UDC PO PRN (21:27)
[2018-09-15] MEDS: ATORVASTATIN CALCIUM 20MG TABLET PO SCH (21:28)
[2018-09-16] VITALS (12 sets, daily range): BP systolic 99–146; BP diastolic 53–77
[2018-09-16] MEDS: IPRATROPIUM/ALBUTEROL 0.5-3(2.5)MG/3ML NEB HHN SCH ×7 (00:09→20:02)
[2018-09-16] MEDS: METOCLOPRAMIDE HCL 10MG/2ML VIAL IV SCH ×4 (00:39→18:31)
[2018-09-16] MEDS: POLYVINYL ALCOHOL OPHTH DROPS 15ML BOTHEYE SCH ×5 (00:40→23:12)
[2018-09-16] MEDS: INSULIN LISPRO 100 UNITS/ML SUBCUT SCH ×7 (00:52→23:18)
[2018-09-16] MEDS: DEXT 5%/0.45% NACL 1000ML 1,000 ML IV SCH ×2 (01:09→20:31)
[2018-09-16] MEDS: BLOOD SUGAR DIAGNOSTIC STRIP TEST SCH ×7 (04:00→23:17)
[2018-09-16] MEDS: METRONIDAZOLE 500 MG PREMIX 100 ML IV SCH ×3 (05:32→20:16)
[2018-09-16] MEDS: THIAMINE HCL 100MG TABLET PO SCH (09:25)
[2018-09-16] MEDS: LACTULOSE 20G/30ML UDC PO SCH (09:25)
[2018-09-16] MEDS: MULTIVITAMINS,THER W-MINERALS TABLET PO SCH (09:25)
[2018-09-16] MEDS: FOLIC ACID 1MG TABLET PO SCH (09:25)
[2018-09-16] MEDS: METOPROLOL TARTRATE 50MG TABLET PO SCH ×2 (09:25→20:17)
[2018-09-16] MEDS: PANTOPRAZOLE SODIUM 40 MG/VIAL IV SCH (09:25)
[2018-09-16] MEDS: AMLODIPINE 5MG TABLET PO SCH ×2 (09:26→16:50)
[2018-09-16] MEDS: CEFTRIAXONE 1 G PREMIX 50 ML IV SCH (11:19)
[2018-09-16] MEDS: INSULIN GLARGINE UD 100 UNITS/ML SYR SUBCUT SCH ×2 (11:36→23:18)
[2018-09-16] MEDS: ATORVASTATIN CALCIUM 20MG TABLET PO SCH (20:17)
[2018-09-17] VITALS (12 sets, daily range): BP systolic 116–135; BP diastolic 59–70
[2018-09-17] MEDS: IPRATROPIUM/ALBUTEROL 0.5-3(2.5)MG/3ML NEB HHN SCH ×6 (00:06→20:08)
[2018-09-17] MEDS: BLOOD SUGAR DIAGNOSTIC STRIP TEST SCH ×5 (03:14→20:57)
[2018-09-17] MEDS: INSULIN LISPRO 100 UNITS/ML SUBCUT SCH ×5 (03:14→21:02)
[2018-09-17] MEDS: METRONIDAZOLE 500 MG PREMIX 100 ML IV SCH ×3 (04:49→21:02)
[2018-09-17] MEDS: POLYVINYL ALCOHOL OPHTH DROPS 15ML BOTHEYE SCH ×3 (05:00→17:13)
[2018-09-17 05:54] LABS: BASOPHILS % 0.8 % (0.0-2.0); EOSINOPHILS % 3.6 % (0.0-5.0); HEMOGLOBIN. 10.4 g/dL (14.0-18.0); LYMPHOCYTES % 16.8 % (20.0-50.0); MEAN CORPUSCULAR HEMOGLOBIN 32.1 pg (28.0-32.0); MEAN CORPUSCULAR VOLUME 99.2 fL (80.0-94.0); MEAN PLATELET VOLUME 10.4 fl (7.4-10.4); MONOCYTES % 10.8 % (2.0-8.0); PLATELET 312 x1000/uL (130-400); RED BLOOD CELL COUNT 3.23 mill/uL (4.7-6.1); RED CELL DISTRIBUTION WIDTH 14.5 % (11.6-14.6)
[2018-09-17 06:28] LABS: CHLORIDE 110 mEq/L (98-107)
[2018-09-17] MEDS: AMLODIPINE 5MG TABLET PO SCH ×2 (08:28→17:13)
[2018-09-17] MEDS: METOPROLOL TARTRATE 50MG TABLET PO SCH ×2 (08:28→20:57)
[2018-09-17] MEDS: FOLIC ACID 1MG TABLET PO SCH (08:28)
[2018-09-17] MEDS: MULTIVITAMINS,THER W-MINERALS TABLET PO SCH (08:28)
[2018-09-17] MEDS: THIAMINE HCL 100MG TABLET PO SCH (08:29)
[2018-09-17] MEDS: LACTULOSE 20G/30ML UDC PO SCH (08:29)
[2018-09-17] MEDS: PANTOPRAZOLE SODIUM 40 MG/VIAL IV SCH (08:30)
[2018-09-17] MEDS: INSULIN GLARGINE UD 100 UNITS/ML SYR SUBCUT SCH ×2 (11:40→21:32)
[2018-09-17] MEDS: CEFTRIAXONE 1 G PREMIX 50 ML IV SCH (11:44)
[2018-09-17] MEDS: CLOPIDOGREL 75MG TABLET PO SCH (11:47)
[2018-09-17] MEDS: ATORVASTATIN CALCIUM 20MG TABLET PO SCH (20:57)
[2018-09-18] VITALS (8 sets, daily range): BP systolic 106–130; BP diastolic 58–67
[2018-09-18] MEDS: IPRATROPIUM/ALBUTEROL 0.5-3(2.5)MG/3ML NEB HHN SCH ×4 (00:12→12:43)
[2018-09-18] MEDS: BLOOD SUGAR DIAGNOSTIC STRIP TEST SCH ×4 (00:35→12:44)
[2018-09-18] MEDS: INSULIN LISPRO 100 UNITS/ML SUBCUT SCH ×3 (00:36→10:04)
[2018-09-18] MEDS: POLYVINYL ALCOHOL OPHTH DROPS 15ML BOTHEYE SCH ×3 (00:36→12:51)
[2018-09-18] MEDS: METRONIDAZOLE 500MG TABLET PO SCH ×2 (05:00→13:13)
[2018-09-18] MEDS: INSULIN GLARGINE UD 100 UNITS/ML SYR SUBCUT SCH (10:04)
[2018-09-18] MEDS: LACTULOSE 20G/30ML UDC PO SCH (10:04)
[2018-09-18] MEDS: CLOPIDOGREL 75MG TABLET PO SCH (10:08)
[2018-09-18] MEDS: METOPROLOL TARTRATE 50MG TABLET PO SCH (10:12)
[2018-09-18] MEDS: AMLODIPINE 5MG TABLET PO SCH (10:12)
[2018-09-18] MEDS: MULTIVITAMINS,THER W-MINERALS TABLET PO SCH (10:13)
[2018-09-18] MEDS: THIAMINE HCL 100MG TABLET PO SCH (10:13)
[2018-09-18] MEDS: FOLIC ACID 1MG TABLET PO SCH (10:13)
[2018-09-18] MEDS ORDERED: FOLI-43 PO (10:43)
[2018-09-18] MEDS ORDERED: THIA100T72 PO (10:43)
[2018-09-18] MEDS ORDERED: METO-539 PO (10:43)
[2018-09-18] MEDS ORDERED: LANTUSUD SUBCUT (10:43)
[2018-09-18] MEDS ORDERED: CLOP75TA16 PO (10:43)
[2018-09-18] MEDS ORDERED: LACT10SO7 PO (10:43)
[2018-09-18] MEDS ORDERED: AMLO5TAB88 PO (10:43)
[2018-09-18] MEDS ORDERED: PANT40TA4 MT (10:43)
[2018-09-18] MEDS: CEFTRIAXONE 1 G PREMIX 50 ML IV SCH (12:51)
[2018-09-18] MEDS ORDERED: LANSOPRAZOLE 30MG DR CAPSULE GT SCH (13:00)
[2018-09-18] MEDS ORDERED: DEXTROSE 50% WATER 50ML SYRINGE IV PRN (13:00)
[2018-09-18] MEDS ORDERED: INSULIN LISPRO 100 UNITS/ML SUBCUT SCH (13:00)
[2018-09-18] MEDS ORDERED: BLOOD SUGAR DIAGNOSTIC STRIP TEST SCH (17:30)
== END 2018-09-18 14:00 | DRG 4 ==
LOC: ER 23:04 → CVICU 09-02 01:49 → EDBEDREQDT 09-02 01:55 → EDBEDREQTM 09-02 01:55 → EDBEDREQ 09-02 01:55 → EDBEDREQSVC 09-02 01:55 → ENRESERV 09-02 06:13 → 5EST 09-12 05:18
PROVIDERS: ADMIT Internal Medicine; ATTEND Internal Medicine
PROC: 5A1955Z Respiratory Ventilation, Greater than 96 Consecutive Hours (ICD-10-PCS; principal; 2018-09-02)
PROC: 0DH63UZ Insertion of Feeding Device into Stomach, Percutaneous Approach (ICD-10-PCS; 2018-09-02)
PROC: 5A12012 Performance of Cardiac Output, Single, Manual (ICD-10-PCS; 2018-09-02)
PROC: 0BH18EZ Insertion of Endotracheal Airway into Trachea, Via Natural or Artificial Opening Endoscopic (ICD-10-PCS; 2018-09-02)
PROC: 05HY33Z Insertion of Infusion Device into Upper Vein, Percutaneous Approach (ICD-10-PCS; 2018-09-02)
PROC: B54MZZA Ultrasonography of Right Upper Extremity Veins, Guidance (ICD-10-PCS; 2018-09-02)
PROC: 4A00X4Z Measurement of Central Nervous Electrical Activity, External Approach (ICD-10-PCS; 2018-09-05)
PROC: 4A00X4Z Measurement of Central Nervous Electrical Activity, External Approach (ICD-10-PCS; 2018-09-08)
PROC: 0B113F4 Bypass Trachea to Cutaneous with Tracheostomy Device, Percutaneous Approach (ICD-10-PCS; 2018-09-15)
PROC: 0GBJ0ZZ Excision of Thyroid Gland Isthmus, Open Approach (ICD-10-PCS; 2018-09-15)
DX: A41.51 Sepsis due to Escherichia coli [E. coli] (principal); I21.4 Non-ST elevation (NSTEMI) myocardial infarction; I46.2 Cardiac arrest due to underlying cardiac condition; K72.00 Acute and subacute hepatic failure without coma; J69.0 Pneumonitis due to inhalation of food and vomit; G93.1 Anoxic brain damage, not elsewhere classified; N17.0 Acute kidney failure with tubular necrosis; R13.10 Dysphagia, unspecified; E11.22 Type 2 diabetes mellitus with diabetic chronic kidney disease; D69.6 Thrombocytopenia, unspecified; D61.818 Other pancytopenia; J96.00 Acute respiratory failure, unspecified whether with hypoxia or hypercapnia; N39.0 Urinary tract infection, site not specified; I50.40 Unspecified combined systolic (congestive) and diastolic (congestive) heart failure; I13.0 Hypertensive heart and chronic kidney disease with heart failure and stage 1 through stage 4 chronic kidney disease, or unspecified chronic kidney disease; N18.9 Chronic kidney disease, unspecified; E87.6 Hypokalemia; E87.1 Hypo-osmolality and hyponatremia; J44.0 Chronic obstructive pulmonary disease with (acute) lower respiratory infection; E78.1 Pure hyperglyceridemia; E83.42 Hypomagnesemia; I49.01 Ventricular fibrillation; D53.9 Nutritional anemia, unspecified; I50.9 Heart failure, unspecified; F17.200 Nicotine dependence, unspecified, uncomplicated; Z72.89 Other problems related to lifestyle; E11.649 Type 2 diabetes mellitus with hypoglycemia without coma; I46.9 Cardiac arrest, cause unspecified; E87.0 Hyperosmolality and hypernatremia; B96.89 Other specified bacterial agents as the cause of diseases classified elsewhere; E44.1 Mild protein-calorie malnutrition; E83.39 Other disorders of phosphorus metabolism; E87.4 Mixed disorder of acid-base balance; I25.10 Atherosclerotic heart disease of native coronary artery without angina pectoris; I25.2 Old myocardial infarction; I50.43 Acute on chronic combined systolic (congestive) and diastolic (congestive) heart failure; K74.60 Unspecified cirrhosis of liver; K76.0 Fatty (change of) liver, not elsewhere classified; Z66 Do not resuscitate; Z78.1 Physical restraint status; T50.2X5A Adverse effect of carbonic-anhydrase inhibitors, benzothiadiazides and other diuretics, initial encounter; J98.11 Atelectasis; E11.65 Type 2 diabetes mellitus with hyperglycemia; Z79.4 Long term (current) use of insulin; Y92.89 Other specified places as the place of occurrence of the external cause; Z86.79 Personal history of other diseases of the circulatory system
CPT/HCPCS: 31500; 36415; 36569; 36600; 70551; 71045; 76770; 76937; 78580; 80048; 80061; 80076; 80202; 80305; 80320; 82140; 82375; 82550; 82607; 82746; 82805; 82962; 83036; 83735; 83880; 84100; 84132; 84145; 84443; 84484; 85379; 86038; 86160; 86705; 86709; 86803; 87077; 87186; 87340; 87389; 92950; 93005; 93306; 93923; 94002; 94003; 94640; 96365; 96367; 96375; 99291; A6261; C1725; C9113; J0282; J0690; J0696; J1815; J1940; J2250; J2405; J2543; J2704; J2765; J3010; J3370; J3411; J3475; J3480; J3490; J7030; J7040; J7050; J7060; J7070; J7608; J7620; A4315; G0480